=== PATIENT | male | born 1990 | race Caucasian/White ===

== ENCOUNTER 2020-01-20 01:10 | Emergency (ER) | payer SELFPAY ==
[2020-01-20] MEDS ORDERED: ONDANSETRON HCL INJ/PF 4 MG/2 ML SDV IV ONE (01:20)
[2020-01-20] MEDS ORDERED: NORMAL SALINE 1000 ML 1,000 ML IV ONE (01:20)
--- NOTE | 2020-01-20 01:35 | ER Document Report ---
ED General - General Chief Complaint: ETOH Abuse Stated Complaint: ETOH Time Seen by Provider: 01/20/20 01:18 EST Notes: Patient is a 29-year-old male that comes emergency department by EMS for chief complaint of alcohol intoxication and vomiting. Patient was at a [employer] party tonight where he was drinking alcohol, per nursing staff they state that EMS reported that patient's friends noticed that he slumped over and did not seem to be responding to them. No CPR was done but they did call ambulance who transported him to the emergency department. No interventions at this time. No fall injury reported. Patient is arousable and states that "I drank way too much tonight". He reports feeling dizzy, nauseated, however he denies any other complaints, denies any pain. He denies any daily medications, past medical history, or recreational drug use. - Related Data Allergies/Adverse Reactions: No Known Allergies Allergy (Unverified 01/20/20 02:07) Past Medical History - General Information source: Patient - Social History Smoking Status: Never Smoker Frequency of alcohol use: Social Drug Abuse: None Lives with: Family Family History: Reviewed & Not Pertinent - Medical History Medical History: Negative Surgical Hx: Negative - Immunizations Immunizations up to date: Yes Hx Diphtheria, Pertussis, Tetanus Vaccination: Yes Review of Systems - Review of Systems Constitutional: No symptoms reported EENT: No symptoms reported Cardiovascular: No symptoms reported Respiratory: No symptoms reported Gastrointestinal: See HPI Genitourinary: No symptoms reported Male Genitourinary: No symptoms reported Musculoskeletal: No symptoms reported Skin: No symptoms reported Hematologic/Lymphatic: No symptoms reported Neurological/Psychological: See HPI Physical Exam - Vital signs Vitals: Resp Pulse Ox 8 L 88 L 01/20/20 01:13 EST 01/20/20 01:13 EST - Notes Notes: GENERAL: Drowsy but arousable to voice, smell of alcohol, slurs his words, unsteady, appears intoxicated HEAD: Normocephalic, atraumatic. EYES: Pupils equal, round, and reactive to light. Extraocular movements intact. ENT: Oral mucosa moist, tongue midline. Oropharynx unremarkable. Airway patent. NECK: Full range of motion. Supple. Trachea midline. No lymphadenopathy. LUNGS: Clear to auscultation bilaterally, no wheezes, rales, or rhonchi. No resp iratory distress. Non-tender chest wall. HEART: Regular rate and rhythm. No murmur ABDOMEN: Soft, non-tender. Non-distended. EXTREMITIES: Moves all 4 extremities spontaneously. No edema, normal radial and dorsalis pedis pulses bilaterally. No cyanosis. BACK: no cervical, thoracic, lumbar midline tenderness. No saddle anesthesia, normal distal neurovascular exam. Moves all extremities in full range of motion. NEUROLOGICAL: Alert and oriented to person, place, but confused about events. Slurred speech. Cranial nerves II through XII grossly intact. Strength 5/5 in all extremities. SKIN: Patient has Halloween pain on his face including fake blood which was double checked to make sure this was fake Course - Re-evaluation Re-evalutation: On evaluation patient appears very intoxicated, smells of alcohol, slurred speech, is very drowsy. However he is protecting his airway, has unremarkable vital signs, has no signs of trauma or reported trauma. Patient is still cooperative and follows all directions. Patient will be given IV fluids, Zofran, and reevaluated. On monitoring patient is unremarkable, he remains arousable, patient gradually became much more sober although he still has spinning when he stands and he will be given more time. Chemistry shows slight hypokalemia but patient was vomiting and I suspect this is from the shift. Glucose unremarkable. Alcohol is elevated but not extreme. Patient was monitored for several hours, now he is ambulatory, not slurring his speech, clinically sober. Patient now has no complaints, expresses appreciation for care. Patient will call a ride and go home with them. I discussed recommendations, follow-up, and return precautions, provided with Zofran to go home with. Patient states appreciation and agreement. Stable and well- appearing at time of discharge. - Vital Signs Vital signs: Temp Pulse Resp BP Pulse Ox 97.6 F 14 122/62 99 01/20/20 01:19 EST 01/20/20 05:01 01/20/20 05:01 01/20/20 05:01 - Laboratory Result Diagrams: 01/20/20 01:18 EST Laboratory results interpreted by me: 01/20/20 01:18 EST Potassium 3.1 L Chloride 108 H Calcium 7.7 L Alkaline Phosphatase 37 L Total Protein 6.0 L Discharge - Discharge Clinical Impression: Alcohol intoxication Qualifiers: Complication of substance-induced condition: with unspecified complication Qualified Code(s): F10.929 - Alcohol use, unspecified with intoxication, unspecified Vomiting Qualifiers: Vomiting type: unspecified Vomiting Intractability: non-intractable Nausea presence: with nausea Qualified Code(s): R11.2 - Nausea with vomiting, unspecified Condition: Stable Disposition: HOME, SELF-CARE Additional Instructions: You have been treated tonight for alcohol intoxication, vomiting, dehydration. Avoid drinking alcohol to intoxication. Start with bland diet, take Zofran if needed for nausea. Follow-up with primary care. Return to the emergency department for any concerning symptoms including severe abdominal pain, uncontrolled vomiting, severe headache, or any other concerning or worsening symptoms. Forms: Return to Work
[2020-01-20 01:47] LABS: ALBUMIN 3.6 g/dL (3.5-5.0); ALCOHOL 190 mg/dL (NONE DETECTED); ALKALINE PHOSPHATASE 37 U/L (38-126); ANION GAP 11 (5-19); ASPARTATE AMINO TRANSFERASE 18 U/L (17-59); BILIRUBIN,TOTAL 0.3 mg/dL (0.2-1.3); BLOOD UREA NITROGEN 9 mg/dL (7-20); CALCIUM 7.7 mg/dL (8.4-10.2); CARBON DIOXIDE 22 mmol/L (22-30); CHLORIDE 108 mmol/L (98-107); GLUCOSE 90 mg/dL (75-110); POTASSIUM 3.1 mmol/L (3.6-5.0)
[2020-01-20] MEDS ORDERED: ONDANSETRON ODT 4 MG TAB (6 TAB/ER DISP) PO PRN (04:54)
[2020-01-20 05:14] VITALS: BP 122/62
== END 2020-01-20 05:13 | disposition home or self-care (01) ==
LOC: ER 01:10
DX: F10.929 Alcohol use, unspecified with intoxication, unspecified (principal); R42 Dizziness and giddiness; R11.2 Nausea with vomiting, unspecified
CPT/HCPCS: 99284; 96361; 96374; 36415; 80307; 80053; J2405; J7030